=== PATIENT | female | born 1950 | race Caucasian/White ===

== ENCOUNTER 2018-09-26 13:34 | Outpatient (REF) | payer MEDICARE, MEDICAID, SELFPAY ==
--- NOTE | 2018-09-26 10:00 | SKI_PTH ---
PATIENT: Pati Martinez LOC: [facility] U#:[id number] AGE/SX: 68/F ROOM: RE09/26/[address]: Nataliya Gooden : 1950 BED: DIS: 09/26/2018 SPEC #: [id number] RECD: 09/29/18 12:21 STATUS: GAYLA RENeptali #: [id number] AIDAN: 09/26/18 10:[address]: Nataliya Colindres DEPT: Surgical Specimen RECD BY: Kirsten Sue ENTERED: 09/29/18 12:21 SP TYPE: ALBERTO GARCIA DR: Heidi Tran Tissues: 1 - SKIN BIOPSY(SHAVE/PUNCH) Procedures: SKIN LEVEL 4 Comments: [id number]
== END 2018-09-26 13:54 ==
LOC: NCHCN 13:34
PROVIDERS: PCP Nurse Practitioner Family; Visit Provider Nurse Practitioner Family
DX: L82.1 Other seborrheic keratosis (principal)
CPT/HCPCS: 88305

== ENCOUNTER 2019-06-15 09:28 | Outpatient (REF) | payer MEDICARE, BC, SELFPAY ==
[2019-06-15 21:35] LABS: Abs Immature Grans 0.01 k/cumm (0.0-0.09); Absolute Basophil Count 0.04 k/cumm (0.0-0.2); Absolute Eosinophil Count 0.31 k/cumm (0.0-0.7); Absolute Lymphocyte Count 1.97 k/cumm (1.2-3.4); Absolute Monocyte Count 0.56 k/cumm (0.11-0.7); Absolute Neutrophil Count 3.96 k/cumm (1.2-6.7); Basophils % 0.6; Eosinophils % 4.5; HCT 44.3 % (36.0-46.0); Immature Grans % 0.1; Lymphocytes % 28.8; Mean Corp. HGB Concentration 33.9 g/dL (32.0-36.0); Mean Corpuscular Hemoglobin 32.5 pg (27.0-33.0); Mean Corpuscular Volume 96.1 fL (80-95); Monocytes % 8.2; Neutrophils % 57.8; Platelet Count 264 x1000/uL (130-400); RBC 4.61 m/cumm (4.00-5.20); RBC Distribution Width 12.5 % (11.7-14.6); White Blood Cell Count 6.85 k/cumm (4.4-10.8)
[2019-06-15 21:47] LABS: Hemoglobin A1C 5.8 % (4.5-6.2)
[2019-06-15 21:53] LABS: ALT 30 U/L (12-78); AST 21 U/L (15-37); Albumin 3.5 g/dL (3.4-5.0); Alkaline Phosphatase 72 U/L (46-116); Anion Gap 6.4 mmol/L (3-11); BUN 15 mg/dL (7-18); Bilirubin, Total 0.3 mg/dL (0.2-1.0); CO2 30.6 mmol/L (21.0-32.0); CREATININE 0.77 mg/dL (0.55-1.02); Chloride 108 mmol/L (98-107); Glucose 97 mg/dL (70-100); Potassium 4.3 mmol/L (3.5-5.1); Sodium 145 mmol/L (136-145); TSH 2.12 uIU/mL (0.36-3.74)
[2019-06-15 22:32] LABS: ESR 12 mm/hr (0-30)
[2019-06-17 11:43] LABS: Lyme Ab w Rflx to Lyme Confirm Negative
[2019-06-17 16:40] LABS: ANA Interpretation Negative (NEGAT)
[2019-06-18 19:52] LABS: Anaplasma phagocytophilum Negative (Negative); B. miyamotoi PCR Negative (Negative); Babesia divergens/MO-1 Negative (Negative); Babesia duncani Negative (Negative); Babesia microti Negative (Negative); Ehrlichia chaffeensis Negative (Negative); Ehrlichia ewingii/canis Negative (Negative); Ehrlichia muris eauclairensis Negative (Negative)
== END 2019-06-15 09:48 ==
LOC: NCHCN 09:28
PROVIDERS: PCP Nurse Practitioner Family; Visit Provider Nurse Practitioner Family
DX: R73.09 Other abnormal glucose (principal); E78.5 Hyperlipidemia, unspecified; M54.10 Radiculopathy, site unspecified; E66.9 Obesity, unspecified
CPT/HCPCS: 80053; 85652; 87798; 83036; 84443; 85025; 86038; 86140; 86618

== ENCOUNTER 2021-03-17 17:21 | Outpatient (REF) | payer MEDICARE, BC, SELFPAY ==
[2021-03-17 19:03] LABS: Hemoglobin A1C 5.8 % (<5.7)
[2021-03-17 19:06] LABS: Calculated LDL 136 mg/dL (<100); Cholesterol 236 mg/dL (<200); HDL Cholesterol 87 mg/dL (40-60); Triglyceride 66 mg/dL (<150)
[2021-03-20 10:21] LABS: Lyme Ab w Rflx to Lyme Confirm Negative (Negative)
[2021-03-22 00:46] LABS: Anaplasma phagocytophilum Negative (Negative); B. miyamotoi PCR Negative (Negative); Babesia divergens/MO-1 Negative (Negative); Babesia duncani Negative (Negative); Babesia microti Negative (Negative); Ehrlichia chaffeensis Negative (Negative); Ehrlichia ewingii/canis Negative (Negative); Ehrlichia muris eauclairensis Negative (Negative)
== END 2021-03-17 17:22 | disposition home or self-care (01) ==
LOC: NCHCN 17:21
PROVIDERS: PCP Nurse Practitioner Family; Visit Provider Nurse Practitioner Family
DX: R73.03 Prediabetes (principal); Z13.220 Encounter for screening for lipoid disorders; Z00.00 Encounter for general adult medical examination without abnormal findings; R68.89 Other general symptoms and signs
CPT/HCPCS: 80061; 87798; 83036; 86618

== ENCOUNTER 2021-03-20 18:35 | Outpatient (REF) | payer MEDICARE, BC, SELFPAY ==
[2021-03-20 21:23] LABS: Abs Immature Grans 0.02 10^3/uL (0.0-0.06); Absolute Basophil Count 0.05 10^3/uL (0.0-0.2); Absolute Eosinophil Count 0.27 10^3/uL (0.0-0.7); Absolute Lymphocyte Count 3.17 10^3/uL (1.2-3.4); Absolute Monocyte Count 0.72 10^3/uL (0.1-0.8); Absolute Neutrophil Count 5.07 10^3/uL (1.2-6.7); Basophils % 0.5; Eosinophils % 2.9; HCT 41.8 % (36.0-46.0); HGB 13.7 g/dL (11.2-15.7); Immature Grans % 0.2; Lymphocytes % 34.1; MCH 31.4 pg (27.0-33.0); MCHC 32.8 % (32.0-36.0); MCV 95.9 fL (80-95); MPV 10.8 fL (8.0-11.0); Monocytes % 7.7; Neutrophils % 54.6; Nucleated RBC 0 %; Platelet Count 290 10^3/uL (130-400); RBC 4.36 10^6/uL (3.93-5.22); RDW-SD 42.3 fL
[2021-03-20 21:41] LABS: TSH 1.44 uIU/mL (0.36-3.74)
[2021-03-21 10:57] LABS: Anion Gap 10.3 mmol/L (3-11); BUN 21 mg/dL (7-18); CO2 26.7 mmol/L (21.0-32.0); CREATININE 0.8 mg/dL (0.55-1.02); Calcium 9.3 mg/dL (8.5-10.1); Chloride 105 mmol/L (98-107); Glucose 101 mg/dL (74-106); Potassium 3.9 mmol/L (3.5-5.1); Sodium 142 mmol/L (136-145)
== END 2021-03-20 18:36 | disposition home or self-care (01) ==
LOC: NCHCN 18:35
PROVIDERS: PCP Nurse Practitioner Family; Visit Provider Nurse Practitioner Family
DX: R53.83 Other fatigue (principal); R73.03 Prediabetes
CPT/HCPCS: 80048; 84443; 85025